=== PATIENT | male | born 1970 | race Caucasian/White ===

== ENCOUNTER → 2022-10-02 11:17 | Outpatient (BNVA) | payer BC, SELFPAY | PROVIDERS: PCP Family Medicine; Referring Provider Family Medicine; Visit Provider Internal Medicine | DX: E11.9 Type 2 diabetes mellitus without complications (principal); E78.2 Mixed hyperlipidemia | CPT/HCPCS: 36415; 80053; 80061; 82044; 83036 ==

== ENCOUNTER 2023-03-29 10:31 | Outpatient (CLI) | payer BC, SELFPAY ==
[2023-03-29 11:15] LABS: Estmated Average Glucose 120; Hemoglobin A1C 5.8 % (4.0-6.0)
[2023-03-29 11:25] LABS: Alanine Aminotransferase 23 U/L (0-41); Albumin Level 4.8 g/dL (3.5-5.2); Alkaline Phosphatase 63 U/L (40-130); Anion Gap 14.8 (5-19); Aspartate Amino Transferase 27 U/L (0-40); Blood Urea Nitrogen 29 mg/dL (6-20); Calcium 9.6 mg/dL (8.5-10.5); Carbon Dioxide 27 mmol/L (22-29); Chloride 102 mmol/L (98-107); Chol HDL Ratio 6.63 mg/dL (1.0-5.00); Cholesterol 265 mg/dL (0-200); Globulin 3.2 g/dL (1.3-4.6); Glomerular Filtration Rate 53.4 mL/min (90-130); Glucose 119 mg/dL (65-115); HDL Cholesterol 40 mg/dL (60-100); LDL Cholesterol Calculated 165 mg/dL (50-129); LDL HDL Ratio 4.13 RATIO (0.00-3.22); Osmolality Calculated 295 mOsm/kg (285-295); Potassium 4.8 mmol/L (3.5-5.1); Sodium 139 mmol/L (136-145); Total Bilirubin 0.8 mg/dL (0.15-1.2); Triglycerides 298 mg/dL (0-150)
[2023-03-29 11:34] LABS: Creatinine Urine, Random 126 mg/dL (39-259); Microalbum Creatinine Ratio Ur 16 mg/dL (0-20); Microalbumin Random Urine 2 ug/dL (0-20)
== END 2023-03-29 10:32 | disposition home or self-care (01) ==
PROVIDERS: PCP Family Medicine; Visit Provider Internal Medicine
DX: E11.9 Type 2 diabetes mellitus without complications (principal); E78.2 Mixed hyperlipidemia
CPT/HCPCS: 80053; 80061; 82044; 83036